=== PATIENT | male | born 1975 | race Hispanic/Latino ===

== ENCOUNTER 2018-08-13 12:18 | Outpatient (CLI) | payer OTHER ==
--- NOTE | 2018-08-13 13:41 | RAD ---
sTHREE VIEWS LEFT ANKLE: History: Pain and swelling since Saturday night. Comparison: None. FINDINGS: There does appear to be lateral soft tissue swelling. No evidence of fracture. Joint spaces appear to be preserved. IMPRESSION: Soft tissue swelling, without evidence of fracture. POS: [facility]
== END 2018-08-13 12:19 | disposition home or self-care (01) ==
LOC: SCSRAD 12:18
PROVIDERS: ATTEND Nurse Practitioner Family
DX: M25.572 Pain in left ankle and joints of left foot (principal); M79.89 Other specified soft tissue disorders
CPT/HCPCS: 36415; 84550

== ENCOUNTER 2020-06-07 07:42 | Emergency (ER) | payer OTHER ==
--- NOTE | 2020-06-07 08:33 | RAD ---
Exam: Chest one view HISTORY:Syncopal episode. Comparison: None FINDINGS: Cardiac silhouette: Normal Aorta: Unremarkable Pulmonary vessels: Normal Costophrenic angles: Clear LUNGS: No masses or consolidation. Pneumothorax: None Osseous abnormalities: None IMPRESSION: No acute cardiopulmonary process.
--- NOTE | 2020-06-07 08:35 | RAD ---
Radiograph sacrum and coccyx 3 views: 06/07/2020 HISTORY: 45-year-old male with acute, traumatic sacrococcygeal pain due to fall FINDINGS: Sacral arcuate lines are preserved. No grossly displaced fracture is identified. IMPRESSION: No grossly displaced fracture
--- NOTE | 2020-06-07 08:40 | CT ---
CT Brain WO Con History: Altered mental status Comparison: None. Findings: No acute hemorrhage or infarct. No midline shift or mass effect. Ventricular size and extra -axial CSF spaces are normal. Calvarium is intact. Paranasal sinuses and mastoids are clear. Impression: No acute intracranial abnormality.
[2020-06-07 09:06] LABS: #Basophils 0.1 thou/uL (0.0-0.2); #Lymphocytes 1.6 thou/uL (1.20-3.40); #Monocytes 0.2 thou/uL (0.11-0.59); #Neutrophils 6.5 thou/uL (1.40-6.50); %Basophils 0.8 % (0.0-1.0); %Eosinophils 0.2 % (0.0-10.0); %Lymphocytes 19.5 % (21.0-51.0); %Monocytes 2.8 % (0.0-10.0); %Neutrophils 76.8 % (42.0-75.0); Hemoglobin 17.4 g/dL (14.0-18.0); Mean Corpuscular HGB CONC 33.3 g/dL (32.0-36.0); Mean Corpuscular Hemoglobin 30.1 pg (27.0-31.0); Mean Corpuscular Volume 90.2 fL (78.0-98.0); Mean Platelet Volume 9.4 fL (7.4-10.4); Platelet Count 134 thou/uL (130-400); RBC Distribution Width 11.8 % (11.5-14.5); Red Blood Cell (RBC) Count 5.78 mill/uL (4.70-6.10); White Blood Cell (WBC) Count 8.4 thou/uL (4.8-10.8)
[2020-06-07 09:31] LABS: Anion Gap 17 mmol/L (10-20); Carbon Dioxide 26 mmol/L (22-29); Chloride 100 mmol/L (98-107); Potassium 3.8 mmol/L (3.5-5.1); Sodium 139 mmol/L (136-145)
[2020-06-07 09:32] LABS: ALT (SGPT) 35 U/L (8-55); AST (SGOT) 22 U/L (5-34); Albumin 4.5 g/dL (3.5-5.0); Alkaline Phosphatase 58 U/L (40-110); BUN (Urea Nitrogen) 16 mg/dL (8.9-20.6); Bilirubin, Total 0.8 mg/dL (0.2-1.2); Calc. Creatinine Clearance 0 mL/min (70-130); Calcium 8.9 mg/dL (7.8-10.44); Globulin 3.2 g/dL (2.4-3.5); Glucose 124 mg/dL (70-105); Protein, Total 7.7 g/dL (6.0-8.3)
[2020-06-07] MEDS ORDERED: methylPREDNISolone Sod Succ/PF 125 MG/2 ML VIAL ONE (10:19)
[2020-06-07] MEDS ORDERED: Famotidine/PF 20 mg/2ml Vial ONE (10:19)
[2020-06-07 19:33] LABS: SARS-CoV-2 MS2 Positive; SARS-CoV-2 N Gene Positive; SARS-CoV-2 S Gene Positive; SARS-CoV-2 by NAA DETECTED (NotDetected); SARS-CoV-2 orf1ab Positive
--- NOTE | 2020-06-11 14:21 | EKG ---
Test Reason : Blood Pressure : / mmHG Vent. Rate : 089 BPM Atrial Rate : 089 BPM P-R Int : 150 ms QRS Dur : 076 ms QT Int : 354 ms P-R-T Axes : 038 014 023 degrees QTc Int : 430 ms Normal sinus rhythm Normal ECG Confirmed by MELINA PADILLA DO ([id number]), associate editor MARCIAL ARAIZA ([id number] on 06/11/2020 2:20:33 PM Referred By: Confirmed By:MELINA PADILLA DO
== END 2020-06-07 10:59 | disposition home or self-care (01) ==
LOC: ERS 07:42
DX: R56.9 Unspecified convulsions (principal); L50.9 Urticaria, unspecified; R55 Syncope and collapse; I10 Essential (primary) hypertension
CPT/HCPCS: 70450; 71045; 72220; 80053; 84146; 85025; 87635; 93005; 96374; 96375; J2930; S0028; U0003